=== PATIENT | male | born 1990 | race Caucasian/White ===

== ENCOUNTER 2018-02-11 07:08 | Emergency (ER) | payer MEDICAID, OTHER ==
[2018-02-11] MEDS ORDERED: PROPARACAINE 0.5% 15 ML OPHT DROP ONE (07:17)
[2018-02-11] MEDS ORDERED: PROPARACAINE 0.5% 15 ML OPHT DROP OP ONE (07:19)
[2018-02-11] MEDS ORDERED: TDAP ADULT 0.5 ML INJ (BOOSTRIX) IM ONE (07:42)
--- NOTE | 2018-02-11 07:44 | EDPHY ---
H & P Stated Complaint: c/o lt eye pain s/p tile tejinder peice into eye Time Seen by Provider: 02/11/18 07:13 HPI/ROS: Chief Complaint: Eye injury HPI: 27-year-old male was breaking tile yesterday morning when a small shard of broken tile went into his left eye. He was not wearing safety glasses at that time. He has had eye pain and irritation since that time. Does not work classes or contacts. He is not up-to-date in his tetanus. No discharge. Does have some redness. ROS: 10 point Review of Systems is negative except as noted in the HPI. PMH: Denies Social History: No smoking, no alcohol, no recreational drug use Family History: non-contributory Physical Exam: Gen: Awake, Alert, No Distress HEENT: Nose: no rhinorrhea Eye Exam Visual Acuity: Unobtainable left eye EOM: Intact OU Visual Conrad: Intact OU Pupil: Equal, round and reactive to light and accomodation OU External: Lids, lashes and margins normal OU Slit Lamp; Normal Conjuctiva, Iris normal, there is a large central corneal stellate laceration with a flap. There is a small white porcelain foreign body underneath the flap., Anterior chambers clear without cells or flare, no hyphema, normal angles Skin: no rash Neuro: CN II-XII intact, Sensation grossly intact, Strength 5/5 in bilateral upper and lower extremities - Personal History Current Tetanus Diphtheria and Acellular Pertussis (TDAP): Yes - Medical/Surgical History Other PMH: ortho - Social History Smoking Status: Never smoked Constitutional: Initial Vital Signs Temperature (C) 36.6 C 02/11/18 07:22 Heart Rate 88 02/11/18 07:22 Respiratory Rate 18 02/11/18 07:22 Blood Pressure 128/78 H 02/11/18 07:22 O2 Sat (%) 97 02/11/18 07:22 O2 Delivery Mode Room Air Allergies/Adverse Reactions: No Known Allergies Allergy (Unverified 02/11/18 07:40) Home Medications: Medication Instructions Recorded Erythromycin 0.5% 1 gm LEFTEYE QID 5 Days opht.oint 02/11/18 Medical Decision Making Procedures: Procedure: Foreign body removal from cornea: Anesthesia: Topical. After verbal consent from the patient, an embedded foreign body was removed from the cornea of the left eye. The foreign body was removed manually using a needle using direct visualization. Following removal there was no significant rust ring. There were no complications and the patient tolerated the procedure well. The procedure was performed by myself. ED Course/Re-evaluation: Case discussed with Dr. Pratt, ophthalmology who returned the call for Dr. Torres. He will arrange to have the patient seen by his partner tomorrow at 10:30 a.m. In the morning. Patient has been given the contact information. Will start him on erythromycin ointment. - Data Points Medications Given: Discontinued Medications Diphtheria/Tetanus/Acell Pertussis (Boostrix) 0.5 ml IM .ONCE ONE Stop: 02/11/18 07:43 Last Admin: 02/11/18 07:53 Dose: 0.5 ml Erythromycin (Erythromycin 0.5%) 1 mireya LEFTEYE ONCE ONE Stop: 02/11/18 08:09 Last Admin: 02/11/18 08:17 Dose: 1 mireya Proparacaine HCl (Alcaine 0.5%) 1 drops OP EDNOW ONE Stop: 02/11/18 07:20 Last Admin: 02/11/18 07:39 Dose: 1 mg Departure - Departure Disposition: Home, Routine, Self-Care Clinical Impression: Corneal laceration Condition: Good Instructions: Corneal Abrasion (ED) Additional Instructions: Follow up with Ophthalmology in the next 2 days. Referrals: Bebeto Rodriguez [Other] - As per Instructions Prescriptions: Erythromycin 0.5% 1 gm LEFTEYE QID 5 Days opht.oint
[2018-02-11] MEDS ORDERED: ERYTHROMYCIN 0.5% 1 GM OPHT.OINT LEFTEYE ONE (08:08)
[2018-02-11 08:30] VITALS: BP 132/65
== END 2018-02-11 08:29 | disposition home or self-care (01) ==
LOC: CED 07:08
PROC: 08C1XZZ Extirpation of Matter from Left Eye, External Approach (ICD-10-PCS; principal; 2018-02-11)
DX: S05.32XA Ocular laceration without prolapse or loss of intraocular tissue, left eye, initial encounter (principal); Z23 Encounter for immunization; X58.XXXA Exposure to other specified factors, initial encounter

== ENCOUNTER 2018-04-10 16:03 | Emergency (ER) | payer MEDICAID ==
--- NOTE | 2018-04-10 16:36 | EDPHY ---
H & P Time Seen by Provider: 04/10/18 16:18 HPI/ROS: HPI Right thumb injury. 27-year-old male by private vehicle with his father. The patient has a history of alcohol abuse. He reports he has drank at least 6 beers today prior to coming to the emergency department. He reports that he tripped on some stairs, did not fall but caught his right thumb awkwardly on the banister to break his fall. He presents with complaint of right thumb deformity. No other injury or complaint. He does have a linear 1 cm abrasion over his nasal bridge which appears to be healing. He reports that this is from a fall 1-2 weeks ago. He is right-hand dominant. ROS: Constitutional: No fever, no chills. No weakness. Musculoskeletal: No back pain. No neck pain. Right thumb pain. Denies other extremity pain. Skin: No rashes. Nasal bridge laceration as above. Denies other lacerations or abrasions. Neurological: No headache. No focal weakness or altered sensation. Past medical history: Alcohol abuse. Anxiety. Bipolar. Social history: As above. He is here with his father. Nonsmoker. Physical Exam: General Appearance: Alert, no distress. He appears intoxicated. This patient is responding to questions appropriately and in full sentences albeit with some slurred speech. This patient appears well-hydrated and well-nourished. Head: Normocephalic atraumatic except for 1 cm linear healing nasal bridge laceration. Face: Facial bones are stable on palpation. Eyes: Pupils equal and round and reactive to light, no pallor or injection. No lid erythema or edema. ENT, Mouth: Mucous membranes moist. Dentition is intact. No malocclusion of the jaw. No tongue lacerations or abrasions. Pharynx is clear. The bilateral nasal canals are clear. No septal hematoma. No tongue lacerations or abrasions. Neurological: Motor sensory function is intact. Cranial nerves are normal. Cerebellar function intact. Skin: Warm and dry, no rashes. No lacerations, abrasions or contusions. Musculoskeletal: Neck is supple and nontender. The trachea is midline. No midline cervical, thoracic, lumbar or sacral tenderness on palpation. No flank tenderness on palpation. Right hand examination: Significant for a dislocation deformity likely at the metacarpal phalangeal joint. All other digits of the right hand are unremarkable on exam. The skin is intact. The right hand is neurovascularly intact. Extremities are symmetrical, full range of motion. All joints in the bilateral upper and bilateral lower extremities range without pain or impingement. No tenderness on palpation of the long bones in the bilateral upper and bilateral lower extremities. Psychiatric: No agitation. No depression. Database: EKG: Imaging: Right hand/thumb x-ray series: Significant for a dislocation of the thumb MCP joint. No fracture identified. Interpreted by me. Post reduction right thumb x-ray: Good anatomic alignment post reduction right thumb MCP joint. Interpreted by me. Procedures: Procedure: Dislocation reduction. Digital block using 0.5% bupivacaine without epinephrine performed without complication and with excellent anesthesia. The right thumb MCP joint was reduced in the usual fashion without complications. Post reduction the patient' s neurovascular exam is normal. Post reduction x-ray demonstrates reduction of the joint to the anatomic position. The procedure was performed by myself. Emergency department course: Reduction of right thumb metacarpophalangeal joint as above. X-rays pre and post reduction discussed with the patient. The patient was placed in a thumb spica splint. Plan will be to have him follow up with orthopedic hand surgery, Dr. Randy Joyner or 1 of his partners early next week for re-evaluation and further management. He has been instructed to leave his wrist and thumb in the splint until seen on follow-up. He feels comfortable being discharged with his father and I feel he is safe to go home. He understands his follow-up. Return to emergency department precautions were reviewed with the 2 of them. All of their questions were answered. The patient was discharged home in good condition with his father. Differential Diagnosis: The differential diagnosis on this patient includes but is not limited to dislocation of the right thumb MCP joint. Fracture unlikely. This represents a partial list of diagnoses considered. These considerations are based on history, physical exam, past history, reassessment and diagnostic testing. Smoking Status: Current every day smoker Constitutional: Initial Vital Signs Temperature (C) 36.7 C 04/10/18 16:06 Heart Rate 117 H 04/10/18 16:06 Respiratory Rate 18 04/10/18 16:06 Blood Pressure 123/82 H 04/10/18 16:06 O2 Sat (%) 93 04/10/18 16:06 O2 Delivery Mode Room Air Allergies/Adverse Reactions: No Known Allergies Allergy (Verified 04/10/18 16:11) Home Medications: Medication Instructions Recorded Hydroxyzine HCl 04/10/18 Olanzapine 04/10/18 Medical Decision Making - Diagnostics Imaging Results: Imaging Impressions Finger X-Ray 04/10/18 16:17 Impression: Dislocated first metacarpophalangeal joint, right thumb. Hand X-Ray 04/10/18 16:17 Impression: Dislocated right thumb at the first metacarpophalangeal joint.. Finger X-Ray 04/10/18 17:16 Impression: Interval reduction in right thumb dislocation. Departure - Departure Disposition: Home, Routine, Self-Care Clinical Impression: Dislocation of right thumb Condition: Good Instructions: Finger Dislocation (ED) Additional Instructions: Read and follow provided instructions. Follow-up with Dr. Matthew Joyner or 1 of his partners in 2-3 days for re-evaluation and further manage. I have also provided you with referral information to our hand specialist on-call. Ibuprofen dosin mg every 6 hours with meals for the next 3 days only. Take only as needed for pain. Keep thumb in splint until seen on follow-up. Return to the emergency department for worsening pain, loss of sensation or weakness, discoloration or other serious concerns. Referrals: Randy Joyner MD [Medical Doctor] - As per Instructions
[2018-04-10 17:48] VITALS: BP 123/78
== END 2018-04-10 17:43 | disposition home or self-care (01) ==
LOC: CED 16:03
PROC: 0RSUXZZ Reposition Right Metacarpophalangeal Joint, External Approach (ICD-10-PCS; principal; 2018-04-10)
DX: S63.114A Dislocation of metacarpophalangeal joint of right thumb, initial encounter (principal); F17.200 Nicotine dependence, unspecified, uncomplicated; W10.8XXA Fall (on) (from) other stairs and steps, initial encounter
CPT/HCPCS: 73130-PO; 73140-PO; L3807